=== PATIENT | male | born 1985 | race Caucasian/White ===

== ENCOUNTER 2018-08-12 02:03 | Emergency (ER) | payer OTHER ==
[2018-08-12 02:14] VITALS: BP 127/87; PULSE 95; TEMP 98; BMI 33.3
[2018-08-12] MEDS ORDERED: DIPHTH,PERTUSS(ACELL),TET 0.5 ML DISP.SYRIN IM ONE (02:24)
--- NOTE | 2018-08-12 02:28 | PDOC ---
History of Present Illness - General Chief Complaint: Laceration Stated Complaint: FACIAL LAC Time Seen by Provider: 08/12/18 02:17 History Source: Patient Exam Limitations: No Limitations - History of Present Illness Initial Comments: 08/12/18 02:24 This is a 33-year-old male who is brought in by his mother for evaluation of a laceration of his left cheekbone area. Patient ran into the edge of a [place] and , at a small laceration to his cheek. Patient last tetanus was does remember when his last tetanus was but thinks it was recently and does not want his tetanus updated. Allergies: None Past Medical History: none Social history: Lives with family. No smoking. No alcohol. No illicit drugs. Surgical history: None General: No fevers or chills, no weakness, no weight loss HEENT: No change in vision. No sore throat,. No ear pain CardioVascular: no chest discomfort. No shortness of breath Respiratory:No cough, or wheezing. Gastrointestinal: no nausea, vomiting, diarrhea or constipation, No rectal bleeding Genitourinary: No dysuria, hematuria, or frequency Musculoskeletal: No joint or muscle pain or swelling Neurologic: No headache, vertigo, dizziness or loss of consciousness Psychiatric: nor depression Skin: No rashes or easy bruising Endocrine: no increased thirst or abnormal weight change Allergic: no skin or latex allergy All other systems reviewed and normal GENERAL: The patient is awake, alert, and fully oriented, in no acute distress. HEAD: There is a superficial laceration of the left cheekbone area approximately half a centimeter there is no active bleeding. There is no bony tenderness. EYES: Pupils equal, round and reactive to light, extraocular movements intact, sclera anicteric, conjunctiva clear. EXTREMITIES:atraumatic, Normal range of motion, no edema. NEUROLOGICAL: Normal speech, normal gait. PSYCH: Normal mood, normal affect. SKIN: Warm, Dry, normal turgor, no rashes or lesions noted. Procedure note laceration repair with Dermabond Laceration was cleaned and then closed with Dermabond patient tolerated Assessment and plan: This is a 33-year-old male with a superficial laceration of his left zygoma area. Laceration was cleaned and closed with Dermabond patient discharged home Past History - Past Medical History Allergies/Adverse Reactions: Allergies Allergy/AdvReac Type Severity Reaction Status Date / Time Sulfa (Sulfonamide Allergy Verified 08/12/18 02:05 Antibiotics) Home Medications: Ambulatory Orders NK [No Known Home Medication] 08/12/18 COPD: No - Suicide/Smoking/Psychosocial Hx Smoking History: Unknown if ever smoked Have you smoked in the past 12 months: No Information on smoking cessation initiated: No *Physical Exam - Vital Signs Last Vital Signs Temp Pulse Resp BP Pulse Ox 98 F 95 H 16 127/87 98 08/12/18 02:08 08/12/18 02:08 08/12/18 02:08 08/12/18 02:08 08/12/18 02:08 Moderate Sedation - Procedure Monitoring Vital Signs: Procedure Monitoring Vital Signs Temperature 98 F 08/12/18 02:08 Pulse Rate 95 H 08/12/18 02:08 Respiratory Rate 16 08/12/18 02:08 Blood Pressure 127/87 08/12/18 02:08 O2 Sat by Pulse Oximetry (%) 98 08/12/18 02:08 *DC/Admit/Observation/Transfer Diagnosis at time of Disposition: Laceration of face Qualifiers: Encounter type: initial encounter Qualified Code(s): S01.81XA - Laceration without foreign body of other part of head, initial encounter - Discharge Dispostion Disposition: HOME Condition at time of disposition: Stable Decision to Admit order: No - Referrals Referrals: Mrashall Trent MD [Primary Care Provider] - - Patient Instructions Printed Discharge Instructions: DI for Laceration Repair With Dermabond Additional Instructions: Read over and follow the instructions for the Dermabond. Keep it dry for 72 hours. Do not use any lotion screams ointments or petroleum based products on. Return to the emergency department immediately with ANY new, persistent or worsening symptoms. Continue any medications as previously prescribed by your physician. You should follow up with your primary doctor as soon as possible regarding today's emergency department visit. . Please make sure your doctor reviews the results of your emergency evaluation. Thank you for coming to the Emergency Department today for your care. It was a pleasure to see you today. Please note that your evaluation is INCOMPLETE until you follow-up with your doctor. - Post Discharge Activity
== END 2018-08-12 02:31 | disposition home or self-care (01) ==
LOC: FER 02:03
PROC: 0HQ1XZZ Repair Face Skin, External Approach (ICD-10-PCS; principal; 2018-08-12)
DX: S01.412A Laceration without foreign body of left cheek and temporomandibular area, initial encounter (principal); W22.8XXA Striking against or struck by other objects, initial encounter; Y93.01 Activity, walking, marching and hiking; Y92.89 Other specified places as the place of occurrence of the external cause; Z88.2 Allergy status to sulfonamides
CPT/HCPCS: 12011; 99281-25

== ENCOUNTER 2024-03-11 17:47 | Emergency (ER) | payer OTHER ==
[2024-03-11 17:53] VITALS: RESP 18; BMI 34.7
[2024-03-11] MEDS ORDERED: DIPHTH,PERTUSS(ACELL),TET 0.5 ML DISP.SYRIN IM ONE (18:07)
[2024-03-11] MEDS ORDERED: ACETAMINOPHEN 500 MG TABLET (FP) ONE (18:07)
[2024-03-11 18:23] VITALS: BP 132/85; PULSE 78; TEMP 98.1
[2024-03-11] MEDS: DIPHTH,PERTUSS(ACELL),TET 0.5 ML DISP.SYRIN IM ONE (18:23)
[2024-03-11] MEDS: ACETAMINOPHEN 500 MG TABLET (FP) PO ONE (18:24)
[2024-03-11] MEDS ORDERED: CEPHALEXIN MONOHYDRATE 500 MG CAPSULE (UD) ONE (18:58)
[2024-03-11] MEDS: CEPHALEXIN MONOHYDRATE 500 MG CAPSULE (UD) PO ONE (19:00)
== END 2024-03-11 19:05 | disposition home or self-care (01) ==
LOC: FER 17:47
PROC: 3E0234Z Introduction of Serum, Toxoid and Vaccine into Muscle, Percutaneous Approach (ICD-10-PCS; principal; 2024-03-11)
DX: S92.515A Nondisplaced fracture of proximal phalanx of left lesser toe(s), initial encounter for closed fracture (principal); W22.8XXA Striking against or struck by other objects, initial encounter; Y93.69 Activity, other involving other sports and athletics played as a team or group; Z23 Encounter for immunization
CPT/HCPCS: 73630-TC-LT; 90471; 90715; 99284-25

== ENCOUNTER 2024-07-13 08:21 | Emergency (ER) | payer OTHER ==
[2024-07-13] MEDS ORDERED: KETOROLAC TROMETHAMINE 15 MG/ML VIAL ONE ×2 (08:33→09:28)
[2024-07-13] MEDS: KETOROLAC TROMETHAMINE 15 MG/ML VIAL IVPUSH ONE (08:45)
[2024-07-13 09:14] VITALS: BP 140/90; PULSE 103; RESP 20; TEMP 98.2; BMI 29.8
[2024-07-13] MEDS: ONDANSETRON 4 MG/2 ML VIAL IVPUSH ONE (09:28)
[2024-07-13] MEDS ORDERED: ONDANSETRON 4 MG/2 ML VIAL ONE (09:29)
[2024-07-13 09:47] LABS: HEMATOCRIT 50.1 % (35.4-49); MCH 28.7 pg (25.7-33.7); MCHC 33.9 g/dl (32.0-35.9); MEAN CELL VOLUME 84.5 fl (80-96); MEAN PLT VOLUME 8.4 fl (7.5-11.1); PLATELET COUNT 259.9 10^3/uL (134-434); RBC 5.93 10^6/uL (4.00-5.60); RDW 13.8 % (11.9-15.9); WHITE BLOOD COUNT 10.1 10^3/uL (4.0-10.8)
[2024-07-13 09:49] LABS: PLATELET ESTIMATE ADEQUATE
[2024-07-13 09:54] LABS: BILIRUBIN,TOTAL 0.8 mg/dl (0.2-1); CALCIUM 10.4 mg/dl (8.5-10.1); CREATININE 1.4 mg/dl (0.6-1.3); POTASSIUM 3.8 mmol/L (3.5-5.1); TOT PROT 7.9 g/dl (6.4-8.2)
[2024-07-13 15:12] LABS: HIV INTERPRETATION NEGATIVE (NEGATIVE)
== END 2024-07-13 10:48 | disposition home or self-care (01) ==
LOC: FER 08:21
PROC: 3E0333Z Introduction of Anti-inflammatory into Peripheral Vein, Percutaneous Approach (ICD-10-PCS; principal; 2024-07-13)
PROC: 3E033GC Introduction of Other Therapeutic Substance into Peripheral Vein, Percutaneous Approach (ICD-10-PCS; 2024-07-13)
DX: N13.2 Hydronephrosis with renal and ureteral calculous obstruction (principal); R11.10 Vomiting, unspecified; R10.9 Unspecified abdominal pain
CPT/HCPCS: 36415; 74176-TC; 80053; 81003; 81015; 85027; 86803; 87086; 87389; 99284-25